=== PATIENT | male | born 1990 | race Two or more races ===

== ENCOUNTER 2016-12-26 16:18 | Emergency (ER) | payer MEDICAID ==
[2016-12-26 16:24] VITALS: O2SAT 97
--- NOTE | 2016-12-26 16:43 | EDPHY ---
H & P Stated Complaint: thinks has infection r foot/last seen at [facility] Time Seen by Provider: 12/26/16 16:24 HPI/ROS: CHIEF COMPLAINT: Multiple complaints HISTORY OF PRESENT ILLNESS: 26-year-old male with no primary care provider in the ER via private vehicle with multiple complaints. 1st complaint is ongoing erythema to the dorsum of his right foot present for the past 2 months. He was previously hospitalized with cellulitis of lower extremity. This area of erythema has been present and consistent for the past 2 months, has not migrated proximally, nontender, normal temperature. He has been seen [facility] told that this was secondary to dermatitis not cellulitis. 2nd complaint is 3 days of painful defecation with a lump at his anus when he defecated today. No blood in toilet water. Positive blood on toilet paper. No abdominal pain. No lightheadedness. No dizziness no syncope no near syncope. 3rd complaints feeling fatigued for several months. No chest pain. No dyspnea. PRIMARY CARE PROVIDER: no primary care provider REVIEW OF SYSTEMS: A ten point review of systems was performed and is negative with the exception of the items mentioned in the HPI PAST MEDICAL & SURGICAL HISTORY: No pertinent medical or surgical history SOCIAL HISTORY: Daily cigarette smoker PHYSICAL EXAM (Prior to examination, patient consented to physical exam, hands were washed and my usual and customary physical exam procedures followed) 1) GENERAL: Well-developed, well-nourished, alert and oriented. Appears to be in no acute distress. Appears nontoxic 2) HEAD: Normocephalic, atraumatic 3) HEENT: Pupils equal, round, reactive to light bilaterally. Sclera anicteric. Nasopharynx, oropharynx, clear, no lesions. Moist mucous membranes 4) NECK: Full range of motion, no meningeal signs. 5) LUNGS: Clear auscultation bilaterally, no wheezes, no rhonchi, no retractions. 6) HEART: Regular rate and rhythm, no murmur, no heave, no gallop. 7) ABDOMEN: No guarding, no rebound, no focal tenderness, negative McBurney's, negative Plummer's, negative Rovsing's, negative peritoneal sign, 8) MUSCULOSKELETAL: right lower extremity: There is a an area of faint erythema to the dorsum of the right foot. No induration. No tenderness. No vesicles. No lymphangitic streaking. No crepitus. Soft compartments of the right lower extremity. No inguinal adenopathy. No pain with passive range of motion. Negative Homans no palpable cord. No soft tissue swelling. Otherwise, Moving all extremities, no focal areas of tenderness, no obvious trauma. No peripheral edema or discoloration. 9) BACK: No CVA tenderness, no midline vertebral tenderness, no fluctuance, no step-off, no obvious trauma, no visual or palpable abnormality. 10) SKIN: No rash, no petechiae. 11) : Thrombosed external hemorrhoid x 2 at the 7 and 8 oclock position. Perineal examination, scrotal examination, testicular examination unremarkable with no tenderness no evidence of Anali's gangrene . DIFFERENTIAL DIAGNOSIS: in no particular include but limited to perianal abscess, thrombosed hemorrhoid, cellulitis - Personal History Current Tetanus/Diphtheria Vaccine: Yes - Medical/Surgical History Hx Asthma: No Hx Chronic Respiratory Disease: No Hx Diabetes: No Hx Cardiac Disease: No Hx Renal Disease: No Hx Cirrhosis: No Hx Alcoholism: No Hx HIV/AIDS: No Hx Splenectomy or Spleen Trauma: No Other PMH: infectons to r foot - Social History Smoking Status: Current every day smoker Constitutional: Initial Vital Signs Temperature (C) 36.7 C 12/26/16 16:21 Heart Rate 92 12/26/16 16:21 Respiratory Rate 18 12/26/16 16:21 Blood Pressure 105/76 12/26/16 16:21 O2 Sat (%) 97 12/26/16 16:21 O2 Delivery Mode Room Air Allergies/Adverse Reactions: No Known Allergies Allergy (Unverified 12/26/16 16:20) Home Medications: Medication Instructions Recorded NK [No Known Home Meds] 12/26/16 Medical Decision Making ED Course/Re-evaluation: This patient has multiple complaints. Regarding the erythema to the dorsum was right foot with remote history of cellulitis to same area, I think that necrotizing fasciitis, cellulitis, less than likely this patient has an absence of lymphangitic streaking, inguinal adenopathy, crepitus, duration of symptoms x2 months with no progression of symptoms. We discussed possibility of dermatitis to this area discussed supportive therapy and importance of follow-up. Regarding his thrombosed hemorrhoid, this has been excised, see procedure note, discussed Sitz baths, increasing fluid and fiber intake and follow-up with General surgery, referral provided. Regarding his 3rd complaint of several months of fatigue, currently stable vital signs, appears well overall. Do not think that emergent diagnostic studies indicated however have recommend establishment with primary care and have provided a [facility]. Overall the patient feels comfortable with this discharge plan. Usual and customary discharge precautions instructions provided. Departure - Departure Disposition: Home, Routine, Self-Care Clinical Impression: erythema right foot, Thrombosed external hemorrhoid Fatigue Qualifiers: Fatigue type: other Qualified Code(s): R53.83 - Other fatigue Condition: Good Instructions: Fatigue (ED), Dermatitis (ED), Thrombosed Hemorrhoid (ED) Additional Instructions: Return to the emergency department if you develop redness going up your leg, if you develop fevers, nausea, vomiting or any other symptoms that concern you. Referrals: [facility],. [Clinic] - 1-2 days without fail
[2016-12-26 18:02] VITALS: BP 108/78; PULSE 86; RESP 16; TEMP 97.5
== END 2016-12-26 18:02 | disposition home or self-care (01) ==
PROC: 06BY0ZC Excision of Hemorrhoidal Plexus, Open Approach (ICD-10-PCS; principal; 2016-12-26)
DX: L53.9 Erythematous condition, unspecified (principal); K64.5 Perianal venous thrombosis; F17.210 Nicotine dependence, cigarettes, uncomplicated; R53.83 Other fatigue

== ENCOUNTER 2018-10-24 21:54 | Emergency (ER) | payer SELFPAY | END 2018-10-24 23:57 | disposition home or self-care (01) ==